=== PATIENT | male | born 1985 | race Caucasian/White ===

== ENCOUNTER → 2020-06-22 | Outpatient (CLI) | payer OTHER ==
[~2020-06-22] MED LIST: FLOMAX 0.40.4 MG/CAP PO; MAXALT5 MG PO; PRIL40 PO; SOMA 350MG350 MG/TAB PO; ZYRTEC 10MG10 MG PO
== END ==
LOC: MHCPAIN 09:03
DX: M47.817 Spondylosis without myelopathy or radiculopathy, lumbosacral region (principal); M54.5 Low back pain; M53.3 Sacrococcygeal disorders, not elsewhere classified; G89.29 Other chronic pain
CPT/HCPCS: G0463

== ENCOUNTER → 2020-06-30 | Outpatient (CLI) | payer OTHER | LOC: MHCPAIN 07:43 | DX: M47.818 Spondylosis without myelopathy or radiculopathy, sacral and sacrococcygeal region (principal); M53.3 Sacrococcygeal disorders, not elsewhere classified | CPT/HCPCS: A9585; G0260; J1040; Q9967 ==

== ENCOUNTER 2020-07-22 09:44 | Day surgery (SDC) | payer OTHER ==
[~2020-07-22] VITALS: Ht 171.4 cm; Wt 82.3 kg
[2020-07-22 11:17] VITALS: BP 111/75; PULSE 55; TEMP 97.6
[2020-07-22] MEDS ORDERED: PRIL40 PO (11:21)
[2020-07-22] MEDS ORDERED: ZYRTEC 10MG10 MG PO (11:22)
[2020-07-22] MEDS ORDERED: FLOMAX 0.40.4 MG/CAP PO (11:23)
[2020-07-22] MEDS ORDERED: SOMA 350MG350 MG/TAB PO (11:23)
[2020-07-22] MEDS ORDERED: MAXALT5 MG PO (11:23)
[2020-07-22 12:15] VITALS: BP 118/76; PULSE 59
--- NOTE | 2020-07-22 12:15 | NUR ---
Patient returns to [facility] [address] per cart after having EGD and is awake and alert. Transfers from cart to recliner with one person assist. IV fluids continue to infuse. Spouse in room. Denies pain or nausea and is able to swallow with complaints of pain.
[2020-07-22 12:30] VITALS: BP 114/76; PULSE 59
--- NOTE | 2020-07-22 12:30 | NUR ---
Continues to rest. Talking with spouse. Drinking water and eating muffin.
[2020-07-22 12:45] VITALS: BP 120/72; PULSE 63
--- NOTE | 2020-07-22 12:45 | NUR ---
Eating muffin and denies difficulty swallowing. Denies nausea.
--- NOTE | 2020-07-22 12:55 | NUR ---
IV was discontinued and site is free of redness or swelling. Dresses self.
--- NOTE | 2020-07-22 13:05 | NUR ---
Dismissal instructions given and voices understanding of these.
--- NOTE | 2020-07-22 13:07 | NUR ---
Patient dismissed to home driven by spouse and taken to the front door per wheelchair and assisted into vehicle by this RN with instructions in hand.
[2020-07-22 13:16] VITALS: BP 118/70; PULSE 59
== END 2020-07-22 13:07 | disposition home or self-care (01) ==
LOC: SDCO 09:44
DX: K21.9 Gastro-esophageal reflux disease without esophagitis (principal); G89.29 Other chronic pain; M54.5 Low back pain
CPT/HCPCS: J2704; J7030